=== PATIENT | male | born 1995 | race Caucasian/White ===

== ENCOUNTER 2017-10-08 21:36 | Emergency (ER) | payer OTHER ==
[~2017-10-08] VITALS: Ht 175.3 cm; Wt 63.6 kg
[2017-10-08] MEDS ORDERED: LEVE500T53 PO (21:48)
[2017-10-08] MEDS ORDERED: KETOROLAC TROMETHAMINE 60 MG/2 ML VIAL IM ONE (22:45)
[2017-10-08] MEDS ORDERED: SUMAtriptan SUCCINATE 6 MG/0.5 ML VIAL SQ ONE (22:45)
[2017-10-08] MEDS ORDERED: METOCLOPRAMIDE HCL 5 MG/ML 2 ML VIAL IVP ONE (22:45)
[2017-10-08] MEDS ORDERED: METOCLOPRAMIDE HCL 5 MG/ML 2 ML VIAL IM ONE (23:00)
[2017-10-09 00:17] VITALS: BP 138/82
[2017-10-09] MEDS ORDERED: HYDROCODONE/ACETAMINOPHEN 5-325 MG TABLET PO ONE (00:30)
== END 2017-10-09 00:47 | disposition home or self-care (01) ==
LOC: EMS 21:40
DX: G43.909 Migraine, unspecified, not intractable, without status migrainosus (principal); F17.210 Nicotine dependence, cigarettes, uncomplicated
CPT/HCPCS: 96372; 99284; 99406; J1885; J2765; J3030

== ENCOUNTER 2017-10-17 14:20 | Emergency (ER) | payer OTHER ==
[~2017-10-17] VITALS: Ht 170.2 cm; Wt 77.3 kg
[~2017-10-17 14:20] MED LIST: LEVE500T53 PO
[2017-10-17] MEDS ORDERED: SUMA25TA9 PO (14:39)
[2017-10-17 16:09] VITALS: BP 129/79
== END 2017-10-17 16:56 | disposition left against medical advice (07) ==
LOC: EMS 14:21
DX: Z53.21 Procedure and treatment not carried out due to patient leaving prior to being seen by health care provider (principal)